=== PATIENT | female | born 1950 | race Caucasian/White ===

== ENCOUNTER 2020-05-19 01:49 | Outpatient (CLI) | payer MEDICARE, SELFPAY ==
[2020-05-19 19:09] LABS: SARS-CoV-2 RNA PCR Negative
== END 2020-05-19 01:50 | disposition home or self-care (01) ==
LOC: ANHCOVIDDT 01:53
PROVIDERS: PCP Internal Medicine; Visit Provider Internal Medicine Gastroenterology
DX: Z01.812 Encounter for preprocedural laboratory examination (principal); Z11.59 Encounter for screening for other viral diseases
CPT/HCPCS: 87635; C9803; U0003

== ENCOUNTER 2020-05-21 01:36 | Day surgery (SDC) | payer MEDICARE, SELFPAY ==
[2020-05-19 15:10] VITALS: BMI 29.0
[2020-05-21 07:30] VITALS: BP 94/48; PULSE 87; RESP 20; TEMP 36.6; O2SAT 98; BMI 31.3
--- NOTE | 2020-05-21 07:48 | PM.HPGS ---
History of Present Illness History of Present Illness Consent: Risks, benefits, and alternatives have been discussed and questions answered. Patient agrees to proceed with procedure. Chief complaint: Neoplasm Screening Narrative: Tiara Mclean is a 69 year old W female referred for screening colonoscopy secondary history of colonic polyps. However last colonoscopy 5 years ago no polyps were seen. She did have a diverticular bleed at that time. Patient with known severe diverticulosis. No family history of colon polyps or colon cancer. [facility] Past Medical History Medical History (Updated 05/21/20 @ 07:49 by Alex Ortiz MD) Dyslipidemia Hypertension Surgical History Surgical History (Updated 05/21/20 @ 07:49 by Alex Ortiz MD) Status post hysterectomy Status post tonsillectomy and adenoidectomy Meds Home Medications and Allergies Home Medications Medication Instructions Recorded Confirmed Type amlodipine 10 mg PO DAILY 05/19/20 05/19/20 History carvedilol 25 mg PO DAILY 05/19/20 05/19/20 History fenofibrate 160 mg PO DAILY 05/19/20 05/19/20 History irbesartan 300 mg PO DAILY 05/19/20 05/19/20 History metoprolol tartrate 50 mg PO DAILY 05/19/20 05/19/20 History multivitamin 1 cap PO DAILY 05/19/20 05/19/20 History simvastatin 10 mg PO DAILY 05/19/20 05/19/20 History Allergies Allergy/AdvReac Type Severity Reaction Status Date / Time No Known Allergies Allergy Verified 05/21/20 07:26 Vital Signs Vital Signs - 24 hr 05/21/20 07:30 Temperature 36.6 C Pulse Rate 87 Respiratory Rate 20 Blood Pressure 94/48 L Pulse Oximetry 98 Exam Const: Orientation/consciousness: patient oriented x3 Resp: Auscultation: clear to auscultation bilaterally Cardio: Rate: regular rate Rhythm: regular rhythm Heart sounds: no murmurs GI: GI Palp: Yes Soft to palpation, No Tenderness to palpation present (GI), Yes No hepatosplenomegaly present and No Palpable mass present Auscultation: normal bowel sounds Neuro: General: patient oriented x3 and no focal motor deficits Extrem: General: no pedal edema Assessment and Plan Additional Plan screening colonoscopy secondary history of colonic polyps
[2020-05-21] MEDS: LACTATED RINGERS 1,000 ML 150 ML IV CONT (07:52)
--- NOTE | 2020-05-21 07:58 | P.PNAN_ITS ---
Anes - Initial Pre Proc Eval Procedure: Operation Date: 05/21/20 08:30 Proposed Procedures p Screening Colonoscopy - Alex Ortiz MD Date/Time: 05/21/20 07:58 Surgeon: Alex Ortiz MD Pre Op Diagnosis: Neoplasm Screening Patient Data Age: 69 Gender: F Height: 5 ft 2 in Weight: 77.7 kg Last Vital Signs Temp 36.6 C 05/21/20 07:30 Pulse 87 05/21/20 07:30 Resp 20 05/21/20 07:30 BP 94/48 L 05/21/20 07:30 Pulse Ox 98 05/21/20 07:30 Allergies Allergy/AdvReac Type Severity Reaction Status Date / Time No Known Allergies Allergy Verified 05/21/20 07:26 Home Medications Medication Instructions Recorded Confirmed Type amlodipine 10 mg PO DAILY 05/19/20 05/19/20 History carvedilol 25 mg PO DAILY 05/19/20 05/19/20 History fenofibrate 160 mg PO DAILY 05/19/20 05/19/20 History irbesartan 300 mg PO DAILY 05/19/20 05/19/20 History metoprolol tartrate 50 mg PO DAILY 05/19/20 05/19/20 History multivitamin 1 cap PO DAILY 05/19/20 05/19/20 History simvastatin 10 mg PO DAILY 05/19/20 05/19/20 History Patient hx anesthesia problems: none Family hx anesthesia problems: none [facility] Past Medical History Medical History COPD (chronic obstructive pulmonary disease) Dyslipidemia Hypertension Surgical History Surgical History Status post hysterectomy Status post tonsillectomy and adenoidectomy Anes - Eval Final PreProcedure Day of Procedure 05/21/20 07:58 Patient weight: obese Heart: regular rate and rhythm Lungs: decreased breath sounds Airway: Mallampati scale class II Neurological: alert and oriented Last oral intake: >/= 8 hours ASA classification: III Emergent: no Anesthetic plan: proceed Anesthesia type and monitoring: general GIVS and standard monitoring Informed Consent: The patient's anesthetic plan and its attendant risks and benefits were discussed with the patient/family/POA. Questions were solicited and answers provided to the satisfaction of the patient/family/POA.
[2020-05-21 08:48] VITALS: BP 96/55; PULSE 96; RESP 16; O2SAT 96
[2020-05-21 08:58] VITALS: BP 95/63; PULSE 68; RESP 16; O2SAT 96
[2020-05-21 09:08] VITALS: BP 108/59; PULSE 66; RESP 16; O2SAT 97
== END 2020-05-21 09:25 | disposition home or self-care (01) ==
PROVIDERS: PCP Internal Medicine; Visit Provider Internal Medicine Gastroenterology
PROC: 0DJD8ZZ Inspection of Lower Intestinal Tract, Via Natural or Artificial Opening Endoscopic (ICD-10-PCS; CPT 45378; principal; 2020-05-21 08:30)
DX: Z12.11 Encounter for screening for malignant neoplasm of colon (principal); D12.2 Benign neoplasm of ascending colon; K57.30 Diverticulosis of large intestine without perforation or abscess without bleeding; I10 Essential (primary) hypertension; E78.5 Hyperlipidemia, unspecified; J44.9 Chronic obstructive pulmonary disease, unspecified; E66.9 Obesity, unspecified; Z68.31 Body mass index [BMI] 31.0-31.9, adult
CPT/HCPCS: 45385; 88305; J2704; J7120

== ENCOUNTER 2020-06-16 10:01 | Outpatient (CLI) | payer MEDICARE, SELFPAY ==
--- NOTE | 2020-06-16 11:00 | NEURO_ITS ---
Patient Number: [id number] Impression: # Complains of numbness of hands. # No evidence of electrical Carpal Tunnel Syndrome at this stage. # No ulnar neuropathy. # Normal and symmetrical F-waves. # Normal needle/EMG exam. # Clinical correlation recommended. Nerve Conduction Studies Anti Sensory Summary Table Stim Site NR Peak (ms) P-T Amp (?V) Site1 Site2 Delta-P (ms) Dist (cm) Sang (m/s) Left Median Anti Sensory (2-3nd Digit) Wrist 3.5 85.5 Wrist 2-3nd Digit 3.5 14.0 40 Wrist 3.5 69.9 Wrist 2-3nd Digit 3.5 14.0 40 Right Median Anti Sensory (2-3nd Digit) Wrist 3.2 58.5 Wrist 2-3nd Digit 3.2 14.0 44 Wrist 3.1 76.0 Wrist 2-3nd Digit 3.2 14.0 44 Left Radial Anti Sensory (Base 1st Digit) Wrist 2.1 29.7 Wrist Base 1st Digit 2.1 0.0 Right Radial Anti Sensory (Base 1st Digit) Wrist 2.3 20.9 Wrist Base 1st Digit 2.3 0.0 Left Ulnar Anti Sensory (5th Digit) Wrist 2.5 48.7 Wrist 5th Digit 2.5 14.0 56 Right Ulnar Anti Sensory (5th Digit) Wrist 2.5 45.8 Wrist 5th Digit 2.5 14.0 56 Motor Summary Table Stim Site NR Onset (ms) O-P Amp (mV) Site1 Site2 Delta-0 (ms) Dist (cm) Sang (m/s) Left Median Motor (Abd Poll Brev) Wrist 3.4 1.8 Elbow Wrist 4.3 26.0 60 Elbow 7.7 1.9 Right Median Motor (Abd Poll Brev) Wrist 3.0 1.7 Elbow Wrist 5.0 27.0 54 Elbow 8.0 0.9 Left Ulnar Motor (Abd Dig Minimi) Wrist 2.5 5.3 A Elbow Wrist 4.6 27.0 59 A Elbow 7.1 2.0 Right Ulnar Motor (Abd Dig Minimi) Wrist 2.4 7.3 A Elbow Wrist 5.1 28.0 55 A Elbow 7.5 5.3 F Wave Studies NR F-Lat (ms) L-R F-Lat (ms) Left Median (Mrkrs) (Abd Poll Brev) 27.17 0.91 Right Median (Mrkrs) (Abd Poll Brev) 26.26 0.91 Left Ulnar (Mrkrs) (Abd Dig Min) 25.70 0.77 Right Ulnar (Mrkrs) (Abd Dig Min) 26.47 0.77 EMG Side Muscle Nerve Root Ins Act Fibs Amp Dur Recrt Comment Right 1stDorInt Ulnar C8-T1 Nml Nml Nml Nml Nml Right Ext Indicis Radial (Post Int) C7-8 Nml Nml Nml Nml Nml Right Ext Digitorum Radial (Post Int) C7-8 Nml Nml Nml Nml Nml Right BrachioRad Radial C5-6 Nml Nml Nml Nml Nml Right PronatorTeres Median C6-7 Nml Nml Nml Nml Nml Right Abd Poll Brev Median C8-T1 Nml Nml Nml Nml Nml Left 1stDorInt Ulnar C8-T1 Nml Nml Nml Nml Nml Left Ext Indicis Radial (Post Int) C7-8 Nml Nml Nml Nml Nml Left Ext Digitorum Radial (Post Int) C7-8 Nml Nml Nml Nml Nml Left BrachioRad Radial C5-6 Nml Nml Nml Nml Nml Left PronatorTeres Median C6-7 Nml Nml Nml Nml Nml Left Abd Poll Brev Median C8-T1 Nml Nml Nml Nml Nml Right ABD Dig Min Ulnar C8-T1 Nml Nml Nml Nml Nml Right Biceps Musculocut C5-6 Nml Nml Nml Nml Nml Right Triceps Radial C6-7-8 Nml Nml Nml Nml Nml Right Deltoid Axillary C5-6 Nml Nml Nml Nml Nml Left ABD Dig Min Ulnar C8-T1 Nml Nml Nml Nml Nml Left Biceps Musculocut C5-6 Nml Nml Nml Nml Nml Left Triceps Radial C6-7-8 Nml Nml Nml Nml Nml Left Deltoid Axillary C5-6 Nml Nml Nml Nml Nml MTDD
== END 2020-06-16 10:02 | disposition home or self-care (01) ==
PROVIDERS: PCP Internal Medicine; Visit Provider Orthopaedic Surgery
DX: R20.8 Other disturbances of skin sensation (principal)
CPT/HCPCS: 95886; 95911

== ENCOUNTER → 2021-10-12 13:46 | Outpatient (CLI) | payer MEDICARE, SELFPAY ==
--- NOTE | ~2021-10-12 | XR_ITS ---
EXAMINATION: XR_CERV2-3V_CR EXAM DATE: 10/12/2021 14:50 INDICATION: No known recent injury provided at this time. Pain of the cervical spine. C4-5 surgery No vember 1. TECHNIQUE: Frontal and lateral projections cervical spine, frontal and lateral projections thoracic s pine, frontal and lateral projections lumbar spine. FINDINGS: Interbody device with supporting screws at C4-5 and C5-6. There is anterior plate with sup porting screws bridging C6-7 with solid bone bridging of the vertebral bodies. No lucency surrounding the hardware. No fracture within the screws. Mild to moderate cervical arthropathy. Moderate amount carotid bulb arterial sclerosis. Moderate-sized mid thoracic endplate osteophytes, mild loss of mid t horacic disc height. Mild to moderate lumbar disc disease. Moderate mid and lower lumbar facet arthro roberto. Sacrum, sacroiliac joints, sacral arcuate lines are intact. IMPRESSION: 1. Intact cervical fusion. 2. Spondylosis. Reviewed, dictated and finalized at location G. ALER
== END ==
PROVIDERS: PCP Internal Medicine; Visit Provider Neurological Surgery
DX: M48.02 Spinal stenosis, cervical region (principal); M50.020 Cervical disc disorder with myelopathy, mid-cervical region, unspecified level; M50.120 Mid-cervical disc disorder, unspecified level; M47.892 Other spondylosis, cervical region; Z98.1 Arthrodesis status
CPT/HCPCS: 72040

== ENCOUNTER 2021-10-21 08:58 | Outpatient (CLI) | payer MEDICARE, SELFPAY ==
--- NOTE | ~2021-10-21 | PE_ITS ---
EXAMINATION: PET skull to mid thigh DATE: 10/21/2021 11:27 INDICATION: Abnormal findings on diagnostic imaging of lung. Lung nodule. TECHNIQUE: Blood glucose level was 132 mg/dL. 10.4 mCi of 18-fluorodeoxyglucose (18-FDG) was administ ered i.v. Low dose computed tomography (CT) images were acquired from the base of the brain to the pr oximal thighs for attenuation correction and anatomic localization. Automated exposure control was em ployed. Dose-length product (DLP) was 761 mGy-cm. Positron emission tomography (PET) images were acqu ired in the same distribution. COMPARISON: CT abdomen and pelvis 08/26/2015 FINDINGS: Head/neck: There is increased activity in the oral cavity, oropharynx without CT correlate, likely ph ysiologic. There are changes of anterior fusion procedures from C4 to C7. There is increased activity in this area without abnormal CT correlate, likely benign. Chest: There is mild atelectasis bilaterally. There is a groundglass opacity in right upper lobe with out increased activity, likely benign. There is mild emphysema. There is a 5 mm nodule in right lower lobe without increased activity, likely benign. No pleural effusion. The heart size is normal. There are coronary artery calcifications. No pericardial effusion. Abdomen/pelvis/proximal thighs: There is diffuse hepatic steatosis. The gallbladder is normal in size . The spleen, pancreas, adrenal glands, and left kidney are normal. There is a 10 mm cyst in right ki dney. There is diverticulosis of the colon without evidence of diverticulitis. The appendix is normal . There are no pathologically enlarged lymph nodes. There is no free intraperitoneal fluid. There is mild lumbar spondylosis. IMPRESSION: 1. No specific evidence of malignancy. Reviewed, dictated and finalized at location A. [employer]
[2021-10-21 09:26] LABS: Glucose Point of Care 132 mg/dl (65-105)
== END 2021-10-21 08:59 | disposition home or self-care (01) ==
LOC: ANHIMG 09:01
PROVIDERS: PCP Internal Medicine; Visit Provider Nurse Practitioner
DX: R91.8 Other nonspecific abnormal finding of lung field (principal)
CPT/HCPCS: 78815; A9552

== ENCOUNTER 2023-01-24 09:04 | Outpatient (CLI) | payer MEDICARE, SELFPAY ==
--- NOTE | ~2023-01-24 | PE_ITS ---
EXAMINATION: PET skull to mid thigh DATE: 01/24/2023 11:39 INDICATION: Abnormal findings on diagnostic imaging of the lungs. TECHNIQUE: Blood glucose level was 127 mg/dL. 10.194 mCi of 18-fluorodeoxyglucose (18-FDG) was admini stered i.v. Low dose computed tomography (CT) images were acquired from the base of the brain to the proximal thighs for attenuation correction and anatomic localization. Positron emission tomography (P ET) images were acquired in the same distribution beginning 53 minutes after injection. Images includ ing fused PET/CT images were reconstructed in axial, coronal, and sagittal planes. Automated exposure control technique was employed. The dose-length product was 590.07mGy-cm. COMPARISON: 10/21/2021 FINDINGS: Head/neck: There is symmetric increased activity in the oral cavity, parotid glands, laryngeal muscles and ocula r muscles without CT correlate, likely physiologic. No pathologically enlarged cervical lymphadenopat hy or suspicious foci of increased FDG uptake in the visualized head or neck. Again seen is diffuse m ild uptake associated with instrumented C4-C7 anterior spinal fusion with no abnormal soft tissue mas s or corresponding suspicious lytic or blastic bone lesions.. Chest: Mild emphysema. 2.4 x 1.4 cm groundglass opacity at the right apex which appears slightly larger than on the prior study at which time it measured approximately 2.1 x 1.2 cm. There is subtle associated FDG uptake with maximal SUV of 2.0 which remains less than the blood pool. A couple unchanged likely benign 5 mm and 4 mm in IN the right lower lobe which remain without evident FDG uptake. No other new or enlarging pulmonary nodules,, pneumonia or pleural effusion. Heart size is normal. Atheroscleroti c coronary artery calcific location. No pericardial effusion. Thoracic aorta is normal in caliber. No pathologically enlarged or FDG avid thoracic lymphadenopathy. Abdomen/pelvis/proximal thighs: Physiologic renal accumulation and excretion of FDG activity in the kidneys, bladder and along portio ns of ureters. 1.6 cm photopenic low-attenuation right renal cyst. Normal degree and heterogenous pat tern of increased uptake throughout the liver without radiologic correlate or dominant FDG avid lesio n. The gallbladder, pancreas, spleen and bilateral adrenal glands are normal. Mild uptake scattered t hroughout the bowels without radiologic correlate, also likely physiologic. Extensive colonic diverti culosis with a sigmoid predominance but without adjacent inflammatory change to suggest diverticuliti s. Normal appendix. No other abnormal foci of increased FDG uptake or pathologically enlarged lympha denopathy in the abdomen, pelvis or proximal thighs. Musculoskeletal: There is diffuse synovial uptake at the bilateral glenohumeral joints, more prominent on the left whe re there are changes of prior left total shoulder arthroplasty. No suspicious lytic, blastic or other abnormal FDG avid bone lesions. IMPRESSION: 1. Nonspecific minimal FDG activity which remains lower than in the blood pool associated with a 2.4 x 1.4 cm ground glass opacity right apex which appears slightly larger than on the prior study althou gh. This could be infectious/inflammatory in etiology or related to low-grade malignancy such as bron choalveolar carcinoma. Recommend correlation with any outside imaging for more definitive assessment of the potential growth which would favor malignancy. Consider CT-guided percutaneous biopsy as clini real indicated. Reviewed, dictated and finalized at location A. IMPRESSION: 1. Nonspecific minimal FDG activity which remains lower than in the blood pool associated with a 2.4 x 1.4 cm ground glass opacity right apex which appears sl ightly larger
[2023-01-24 09:41] LABS: Glucose Point of Care 127 mg/dl (65-105)
== END 2023-01-24 09:05 | disposition home or self-care (01) ==
PROVIDERS: PCP Internal Medicine; Visit Provider Nurse Practitioner
DX: R91.8 Other nonspecific abnormal finding of lung field (principal)
CPT/HCPCS: 78815; A9552

== ENCOUNTER 2023-02-06 15:27 | Outpatient (CLI) | payer MEDICARE, SELFPAY ==
--- NOTE | ~2023-02-06 | XR_ITS ---
EXAMINATION: XR wrist RT 2V, XR hand LT 2V, XR hand RT 2V, XR wrist LT 2V DATE: 02/06/2023 16:13 INDICATION: rheumatoid arthritis at multiple sites with negative for rheumatoid factor TECHNIQUE: 1. Posteroanterior and lateral views of the left wrist were obtained. 2. Dorsal palmar and lateral views of the left hand were obtained. 3. Posteroanterior and lateral views of the right wrist were obtained. 2. Dorsal palmar and lateral views of the right hand and ball-catcher's view of both hands were obtai felipe. COMPARISON: None. FINDINGS: Normal alignment at the bilateral hands and wrists. No fracture identified. Relatively symmetric typi junie distribution of mild polyarticular osteoarthritis at the bilateral hands and wrists characterized by mild nonuniform joint space narrowing and small to moderate-sized marginal osteophytes. This most prominent at the radial aspects the carpi, the first metatarsal phalangeal joints and at multiple pr edominantly distal interphalangeal joints. No erosions to suggest inflammatory arthritis. No focal so ft tissue swelling. IMPRESSION: 1. 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 No erosions to suggest an inf lammatory arthritis. Reviewed, dictated and finalized at location A. IMPRESSION: 1. 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 No eros ions to suggest an inflammatory arthritis. IMPRESSION: 1. 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 No eros ions to suggest an inflammatory arthritis. IMPRESSION: 1. 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 No eros ions to suggest an inflammatory arthritis.
--- NOTE | ~2023-02-06 | XR_ITS ---
EXAMINATION: XR sacroiliac joints min 3V DATE: 02/06/2023 16:15 INDICATION: Rheumatoid arthritis at multiple sites with negative rheumatoid factor TECHNIQUE: AP and left and right oblique views of the sacroiliac joints were obtained. COMPARISON: CT abdomen pelvis dated 07/28/2015 FINDINGS: Mild nonuniform joint space narrowing at the bilateral sacroiliac joint spaces. Sclerosis at the infe rior right sacroiliac joint which on prior CT appears to correspond to small osteophytes as well as s ome subarticular sclerosis. No erosions identified on the plain radiographs although there do appear to be a few small subarticular lucencies with sclerotic margins at the bilateral sacroiliac joints on the prior CT which could represent either degenerative subarticular cystic change related to osteoar thritis or erosions related to an inflammatory sacroiliitis. Mild bilateral hip osteoarthritis. IMPRESSION: 1. Mild bilateral sacroiliac osteoarthritis with a few small subarticular lucent lesions which could represent either subarticular cystic change related to osteoarthritis or small erosions related to brady perimposed inflammatory arthritis with sacroiliitis. Reviewed, dictated and finalized at location A. IMPRESSION: 1. Mild bilateral sacroiliac osteoarthritis with a few small subarticular lucen t lesions which could represent either subarticular cystic change related to os teoarthritis or small erosions related to superimposed inflammatory arthritis w ith sacroiliitis.
--- NOTE | ~2023-02-06 | XR_ITS ---
EXAMINATION: XR ankle RT 2V, XR foot LT 2V, XR foot RT 2V, XR ankle LT 2V DATE: 02/06/2023 16:15 INDICATION: Rheumatoid arthritis at multiple sites with negative rheumatoid factor. TECHNIQUE: 1. Anteroposterior and lateral view of the right ankle were obtained. 2. Dorsoplantar and lateral views of the right foot were obtained. 3. Anteroposterior and lateral view of the left ankle were obtained. 2. Dorsoplantar and lateral views of the left foot were obtained. COMPARISON: None. FINDINGS: Postoperative changes at the left foot of prior bunionectomy and likely realignment ostomies at the n gianni of the first metatarsal with screw fixation as well as at the first proximal phalanx. Alignment of the bilateral feet and ankles is otherwise normal. No fracture. Bilateral plantar calcaneal spurs. Mild polyarticular osteoarthritis characterized by nonuniform joint space narrowing and small margin al osteophytes with typical distribution at the bilateral first and second metatarsophalangeal joints and multiple bilateral tarsometatarsal and interphalangeal joints. No erosions to suggest inflammato ry arthritis such as rheumatoid. Round subarticular lucency with sclerotic margins at the medial aspe ct of the right talar dome and favor additional osteoarthritis related degenerative subchondral cyst over osteochondral lesion with relatively preserved joint space at the bilateral ankle joints. The so ft tissues are unremarkable. IMPRESSION: 1. 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 No erosions to suggest inflam matory arthritis. 2. Subarticular lucency at the medial right talar dome and favor degenerative subarticular cystic brook nge related to mild tibiotalar osteoarthritis with differential including less likely osteochondral l esion related to old trauma. 3. Postoperative change of prior bunionectomy and hallux valgus correction at the left great toe. Reviewed, dictated and finalized at location A. IMPRESSION: 1. 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 No eros ions to suggest inflammatory arthritis. 2. Subarticular lucency at the medial right talar dome and favor degenerative s ubarticular cystic change related to mild tibiotalar osteoarthritis with differ ential including less likely osteochondral lesion related to old trauma. 3. Postoperative change of prior bunionectomy and hallux valgus correction at t he left great toe. IMPRESSION: 1. 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 No eros ions to suggest inflammatory arthritis. 2. Subarticular lucency at the medial right talar dome and favor degenerative s ubarticular cystic change related to mild tibiotalar osteoarthritis with differ ential including less likely osteochondral lesion related to old trauma. 3. Postoperative change of prior bunionectomy and hallux valgus correction at t he left great toe. IMPRESSION: 1. 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 No eros ions to suggest inflammatory arthritis. 2. Subarticular lucency at the medial right talar dome and favor degenerative s ubarticular cystic change related to mild tibiotalar osteoarthritis with differ ential including less likely osteochondral lesion related to old trauma. 3. Postoperative change of prior bunionectomy and hallux valgus correction at t he left great toe.
== END 2023-02-06 15:28 | disposition home or self-care (01) ==
PROVIDERS: PCP Internal Medicine; Visit Provider Nurse Practitioner Family
DX: M06.09 Rheumatoid arthritis without rheumatoid factor, multiple sites (principal); M79.10 Myalgia, unspecified site; R53.81 Other malaise; M53.3 Sacrococcygeal disorders, not elsewhere classified; M19.071 Primary osteoarthritis, right ankle and foot; M19.072 Primary osteoarthritis, left ankle and foot; M19.041 Primary osteoarthritis, right hand; M19.042 Primary osteoarthritis, left hand; M19.031 Primary osteoarthritis, right wrist; M19.032 Primary osteoarthritis, left wrist
CPT/HCPCS: 72202; 73100; 73120; 73600; 73620

== ENCOUNTER 2024-08-16 16:06 | Emergency (ER) | payer MEDICARE, SELFPAY ==
--- NOTE | ~2024-08-16 | XR_ITS ---
3 VIEWS LUMBAR SPINE Ordering provider: Shreyas Hernandez APRN History: . lower back pain . Comparison: None. FINDINGS: VERTEBRAL BODIES: No visible fracture or subluxation. DISK SPACES: Normal. SOFT TISSUES: Aortic atherosclerotic changes. IMPRESSION: No acute osseous abnormality lumbar spine. Reviewed, dictated and finalized at location A.
[2024-08-16 16:25] VITALS: BP 109/51; PULSE 77; RESP 19; TEMP 36.7; O2SAT 97
--- NOTE | 2024-08-16 16:46 | ED.BACK ---
HPI - Back Pain/Injury General Chief Complaint: Back Pain/Injury Stated Complaint: I feel like I broke my back Time Seen by Provider: 08/16/24 16:36 History of Present Illness HPI Narrative: 73-year-old female presents with lower back pain assertive prior to arrival. Patient states she was bending over to sisal picker something off the floor and started having severe lower back pain. Patient denies falling or any trauma. Patient denies history of lower back pain but states she has had multiple cervical surgeries. Patient took 1 dose of Tylenol. Patient states she still unable to ambulate or stand up straight. Patient denies loss of bowel or bladder. Patient denies any other symptoms Related Data Home Medications Medication Instructions Recorded Confirmed amlodipine 10 mg tablet 10 mg PO DAILY 05/19/20 05/19/20 carvedilol 25 mg tablet 25 mg PO DAILY 05/19/20 05/19/20 fenofibrate 160 mg tablet 160 mg PO DAILY 05/19/20 05/19/20 irbesartan 300 mg tablet 300 mg PO DAILY 05/19/20 05/19/20 metoprolol tartrate 50 mg tablet 50 mg PO DAILY 05/19/20 05/19/20 multivitamin 1 cap PO DAILY 05/19/20 05/19/20 simvastatin 10 mg tablet 10 mg PO DAILY 05/19/20 05/19/20 Allergies Allergy/AdvReac Type Severity Reaction Status Date / Time No Known Allergies Allergy Verified 08/16/24 16:06 Review of Systems Review of Systems: A 10 system review of systems was completed on the patient and is negative except for what is stated in the HPI. Nursing and ancillary documentation was reviewed. [facility] Past Medical History Medical History (Updated 08/16/24 @ 17:23 by Shreyas Hernandez APRN) COPD (chronic obstructive pulmonary disease) Dyslipidemia Hypertension Surgical History Surgical History Status post hysterectomy Status post tonsillectomy and adenoidectomy Exam Narrative: GENERAL: Well-appearing, well-nourished, and in no acute distress. HEAD: Normocephalic, atraumatic. EYES: PERRLA and EOMI. ENT: Nares clear, no rhinorrhea or epistaxis. Mucous membranes moist. NECK: Supple. CHEST: Clear to auscultation. No respiratory distress. HEART: Regular rate and rhythm. No murmur heard. Normal peripheral pulses. ABDOMEN: Soft, nontender, nondistended, normal active bowel sounds. EXTREMITIES: Normal range of motion. No edema. SKIN: Warm, dry, no rash. NEURO: No focal deficits. Alert and oriented x3. PSYCH: Normal mood and affect. BACK: Tenderness at L5-L6, patient able to move bilateral extremity with no paresthesia Course Course Emergency Course: Order pain medication and imaging of lumbar Vital Signs Vital signs: Vital Signs Temperature 36.7 C 08/16/24 16:25 Pulse Rate 77 08/16/24 16:25 Respiratory Rate 19 08/16/24 16:25 Blood Pressure 109/51 L 08/16/24 16:25 Pulse Oximetry 97 08/16/24 16:25 Oxygen Delivery Room Air 08/16/24 16:25 Temperature 36.7 C 08/16/24 16:25 Pulse Rate 77 08/16/24 16:25 Respiratory Rate 19 08/16/24 16:25 Blood Pressure 109/51 L 08/16/24 16:25 Pulse Oximetry 97 08/16/24 16:25 Oxygen Delivery Room Air 08/16/24 16:25 MDM - Back Pain/Injury MDM Narrative Medical decision making narrative: X-ray results are negative. Patient is having relief with pain medication. Will prescribe pain medicine and muscle relaxers for home. Close follow-up with PCP Differential Diagnosis Differential diagnosis: Likely lumbar radiculopathy, sciatica, strain of lumbar region and discitis Imaging Data Radiologist's impression: normal lumbar spine Discharge Plan Discharge Clinical Impression: Strain of lumbar region Patient Disposition: Home, Self-Care Condition: Improved Instructions: Antibiotic Form, Low Back Strain (ED), Acute Low Back Pain (ED) Additional Instructions: Take medications as prescribed Alternate ice and heat Follow-up with primary care doctor in 1 week if symptoms are co
[2024-08-16] MEDS: ORPHENADRINE CITRATE 100 MG TABLET.ER PO (17:02)
[2024-08-16] MEDS: MORPHINE SULFATE (*CRX) 4 MG/ML INJ IM (17:03)
== END 2024-08-16 18:24 | disposition home or self-care (01) ==
LOC: ANHED 17:39
PROVIDERS: Emergency Provider Nurse Practitioner Family; PCP Internal Medicine
DX: S39.012A Strain of muscle, fascia and tendon of lower back, initial encounter (principal); J44.9 Chronic obstructive pulmonary disease, unspecified; E78.5 Hyperlipidemia, unspecified; I10 Essential (primary) hypertension
CPT/HCPCS: 72100; 96372; 99283; A9270; J2270

== ENCOUNTER 2025-01-09 09:50 | Outpatient (CLI) | payer MEDICARE, SELFPAY ==
--- NOTE | ~2025-01-09 | CT_ITS ---
EXAMINATION: CT shoulder LT wo con DATE: 01/09/2025 10:06 INDICATION: Left shoulder pain TECHNIQUE: High resolution computed tomography (CT) of the left shoulder was performed without intrav enous contrast. Additional sagittal and coronal reconstructions were performed. Automated exposure co ntrol and iterative reconstruction technique were employed. The dose-length product was 346.15 mGy-cm . COMPARISON: Radiographs dated 12/2606/25/2025 FINDINGS: Left total shoulder arthroplasty appears well seated in near anatomic alignment. There is associated streak artifact which limits evaluation of the immediately adjacent bone and soft tissues. No fractur e. Mild acromioclavicular osteoarthritis. No evident joint effusion. Soft tissues are unremarkable. N o asymmetric muscular atrophy of the rotator cuff or shoulder girdle. Visualized portion of the left lung are clear. Atherosclerotic coronary artery calcification. No left hilar or axillary lymphadenopa thy. IMPRESSION: 1. Expected appearance of a left total shoulder arthroplasty. No acute osseous abnormality. Reviewed, dictated and finalized at location L. [employer]
== END 2025-01-09 09:51 | disposition home or self-care (01) ==
LOC: MICIMG 09:51
PROVIDERS: PCP Orthopaedic Surgery; Visit Provider Orthopaedic Surgery
DX: M25.512 Pain in left shoulder (principal); Z96.612 Presence of left artificial shoulder joint
CPT/HCPCS: 73200